=== PATIENT | male | born 1970 | race Caucasian/White ===

== ENCOUNTER 2019-03-13 13:06 | Emergency (ER) | payer OTHER, SELFPAY ==
[2019-03-13 13:06] VITALS: BP 148/92; PULSE 110; RESP 18; TEMP 37; O2SAT 99; BMI 25.7
--- NOTE | 2019-03-13 13:23 | CT_ITS ---
STUDY: CT CERVICAL SPINE WITHOUT CONTRAST REASON FOR EXAM: Male, 48 years old. 6-8 FT FALL FROM LADDER RADIATION DOSAGE (If Supplied By Facility): CTDIvol = ( 22.39 ) mGy, DLP = ( 493.55 ) mGycm TECHNIQUE: The patient was scanned in a multi detector CT scanner. High resolution transaxial imaging was performed. Sagittal and coronal images were reconstructed. Individualized dose optimization techniques were used for this CT. COMPARISON: None FINDINGS: Normal cervical lordosis. There are no demonstrated fractures of the cervical spine. There is multilevel endplate spondylosis of the vertebrae. There is multi-level degenerative disc disease with multi-level disc space narrowing. Normal visualized paraspinous soft tissue structures. CT/Spine Cervical without Contras IMPRESSION: No demonstrated fractures. Multilevel degenerative changes. Electronically Signed: Nj Melton MD at 14:15 EDT Tel , Service support ,
--- NOTE | 2019-03-13 13:23 | CT_ITS ---
STUDY: CT BRAIN WITHOUT CONTRAST REASON FOR EXAM: Male, 48 years old. 6-8 FT FALL FROM LADDER. RADIATION DOSAGE (If Supplied By Facility): CTDIvol = ( 44.99 ) mGy, DLP = ( 812.98 ) mGycm TECHNIQUE: Transaxial CT imaging of the brain was performed without administration of intravenous contrast material. Individualized dose optimization techniques were used for this CT. COMPARISON: No relevant priors. FINDINGS: Normal soft tissue structures. Normal calvarium. Normal size ventricles and extra-axial spaces for the patient's age. Normal white matter tracts of the cerebral hemispheres. Normal basal ganglia and thalami. Normal brainstem. Normal cerebellum. There is no intracranial hemorrhage. There are no findings of an acute ischemic infarction. Normal visualized paranasal sinuses. CT/Brain/Head without Contrast IMPRESSION: Normal unenhanced CT scan of the brain. Electronically Signed: Nj Melton MD at 14:10 EDT Tel , Service support ,
--- NOTE | 2019-03-13 13:24 | CT_ITS ---
STUDY: CT FACIAL BONES WITHOUT CONTRAST REASON FOR EXAM: Male, 48 years old. 6-8 FT FALL FROM LADDER RADIATION DOSAGE (If Supplied By Facility): CTDIvol = ( 29.38 ) mGy, DLP = ( 576.84 ) mGycm TECHNIQUE: The patient was scanned in a multi detector CT scanner. Sagittal and coronal images were reconstructed. Individualized dose optimization techniques were used for this CT. COMPARISON: None. FINDINGS: Normal soft tissue structures. Normal orbital enriquez and orbital contents. There is no demonstrated fracture. CT/Sinus/Facial Bone IMPRESSION: There is no demonstrated fracture. Electronically Signed: Nj Melton MD at 14:23 EDT Tel , Service support ,
--- NOTE | 2019-03-13 13:26 | RAD_ITS ---
STUDY: X-RAY - LEFT HAND REASON FOR EXAM: Male, 48 years old. Patient fell from ladder TECHNIQUE: 3 view(s) of the hand. COMPARISON: None. FINDINGS: No definite evidence for acute fractures or dislocation. Overall alignment appears satisfactory IMPRESSION: No definite evidence for acute fractures or dislocation of the left hand Electronically Signed: Edinson Gonzalez, at 14:13 EDT Tel , Service support , RAD/Hand Min 3 Views
[2019-03-13] MEDS: Diphth,Pertuss(Acell),Tet Vac 0.5 ML Vial IM (13:31)
--- NOTE | 2019-03-13 13:38 | ED.VIS.FALL ---
History of Present Illness <EdinsonPalomo - Last Filed: 03/13/19 15:27> Informant: Patient, Family Occurred: Today Mechanism/Context: Slip Fall from Height (ft): 6 foot ladder Usually ambulates: Without assistance Location: head/neck/face/left hand Quality of Pain: Aching Current Severity: Moderate Maximum Severity: Severe Worsened by: movement Relieved by: rest Associated Symptoms: Negative for: Parasthesias, Weakness, Loss of function, Inability to ambulate, Loss of consciousness, Amnesia Narrative: 48-year-old male who denies any significant past medical history presents to the emergency department after a fall. Patient was at home. He was on a 6 foot ladder. He fell off the ladder landing face first. He hit his head and face on the ground. He did not lose consciousness. He had no prodromal symptoms he lost his balance on the ladder and then fell. He has a small laceration on his nose he is having pain in his head neck face and left hand. He denies any other injuries. He has not had any difficulties with speech or ambulation. He is not having any issues with his vision. He does not feel lightheaded or dizzy. He denies nausea or vomiting. He denies numbness tingling or weakness of his upper or lower extremities. He is not on blood thinners. He has been ambulatory since this fall. He denies any other review of systems. Tetanus Immunization: Unknown Prior similar symptoms: No Recent Illness/Hospitalization: No <Toan Feldman - Last Filed: 03/13/19 15:31> Chief Complaint: Fall Past Medical History <EdinsonPalomo - Last Filed: 03/13/19 15:27> Prior records reviewed: Yes Past Medical History: - - Patient denies medical history Surgical History: - - Left foot surgery Lives: Alone Smoking Status: Current every day smoker <Toan Feldman - Last Filed: 03/13/19 15:31> - Allergies and Home Meds Allergies/Adverse Reactions: Allergies No Known Allergies Allergy (Verified 03/13/19 13:08) Primary Care Physician: Kendra Rosario DO [STAFF PHYSICIAN] - Care Physician,No Primary [Primary Care Provider] - Review of Systems All systems negative except as indicated ENT: Reports: - - Nose pain Musculoskeletal: Reports: Neck pain Neurological: Reports: Headache <Toan Feldman - Last Filed: 03/13/19 15:31> Physical Exam Vital Signs/Narrative: Vital Signs Temp Pulse Resp BP Pulse Ox 03/13/19 14:46 62 16 141/91 H 100 03/13/19 13:06 98.6 F 110 H 18 148/92 H 99 <Palomo Neves - Last Filed: 03/13/19 15:27> Vital Signs/Narrative: Vital Signs Temp Pulse Resp BP Pulse Ox 03/13/19 13:06 98.6 F 110 H 18 148/92 H 99 Inital Vital Signs reviewed: Yes General: Well nourished, Well developed Head: Normocephalic, Trauma - Small abrasion bridge of nose, several small abrasions to the right cheek. No lacerations. No raccoon or cortez sign. Eyes: Perrl, EOMI ENT: TM's clear, No hemotympanum or drainage, Nasal trauma. Negative for: Hemotympanum, Nasal septal hematoma Neck: Full ROM, Spinal Tenderness, Paraspinal Tenderness Cardiovascular: Regular rate, Regular rhythm, No murmurs Respiratory: No distress, CTA bilaterally, Chest nontender Abdomen: Soft, Nontender, Nondistended, Normal bowel sounds, No masses Back: Nontender Extremeties: 5 out of 5 strength testing of the upper and lower extremities bilaterally. Patient has no bony tenderness of either hip knee or ankle, shoulder elbow or wrist. Skin: Normal color, Trauma Neurological: Alert, Oriented x3, Cranial nerves II-XII grossly intact, Normal Strength, Normal Sensation, Normal Gait Psychological: Normal affect, Normal Mood <Toan Feldman - Last Filed: 03/13/19 15:31> Diagnostic/Tx/Re-eval - Medical Decision Making Evaluated with our physician technology assistant. Fall from a ladder approximately 8 feet in the air. Landed striking his face on the ground. No LOC. On no blood thinners. Complaining of facial pain, headache and neck pain. No numbness. Vital signs stable afebrile. HEENT exam pupils are round reactive light. Superficial laceration to bridge of his nose. Mildly tender. No deformity. No active bleeding. Scalp nontender. He has dentures and there is no trauma to his dentures. C-spine nontender. Trachea midline. Lungs clear to auscultation bilaterally. Heart regular rhythm no murmur. Chest wall nontender. Abdomen soft and nontender. Patient moving all 4 extremities. Neurovascular intact. He has mild tenderness to the fifth or small metatarsal of his left hand but no bony deformity. Both hands are neurovascularly intact with normal range of motion. Neurologically he is awake and alert. GCS of 15. CT of the brain was read as negative by the radiologist reviewed by us. CT of the C-spine read as negative by the radiologist reviewed by us. Left hand x-ray showed no acute abnormality again read by the radiologist and reviewed by us. Repeat exam the patient is doing well. I went over all test results with he and his . Impression: 1. Fall from approximately 8 feet 2. Closed head injury 3. Cervical strain 4. Superficial nasal laceration no repair <Palomo Neves - Last Filed: 03/13/19 15:27> ED Disposition <Palomo Neves - Last Filed: 03/13/19 15:27> <Toan Feldman - Last Filed: 03/13/19 15:31> - Plan for ED Patient: Disposition: Home or Assisted Living Diagnosis: Closed head injury, Cervical strain, acute, Facial abrasion Instructions: FALL, Mechanical Referrals: Care Physician,No Primary [Primary Care Provider] - Kendra Rosario DO [STAFF PHYSICIAN] -
[2019-03-13 14:46] VITALS: BP 141/91; PULSE 62; RESP 16; O2SAT 100
== END 2019-03-13 15:36 | disposition home or self-care (01) ==
PROVIDERS: Emergency Provider Physician Assistant Medical
DX: S16.1XXA Strain of muscle, fascia and tendon at neck level, initial encounter (principal); S01.21XA Laceration without foreign body of nose, initial encounter; S00.81XA Abrasion of other part of head, initial encounter; M79.642 Pain in left hand; R40.2410 Glasgow coma scale score 13-15, unspecified time; W11.XXXA Fall on and from ladder, initial encounter; Y93.9 Activity, unspecified; Y92.9 Unspecified place or not applicable; F17.200 Nicotine dependence, unspecified, uncomplicated
CPT/HCPCS: 70450; 70486; 72125; 73130; 90471; 90715; 99282